=== PATIENT | female | born 1945 | race African-American/Black ===

== ENCOUNTER 2021-12-25 07:41 | Inpatient (IN) | payer MEDICARE, OTHER ==
[~2021-12-25] VITALS: Ht 165.1 cm; Wt 63.5 kg
[2021-12-25] MEDS ORDERED: SODIUM CHLORIDE 0.9% 1,000 ML IV ONE (09:15)
[2021-12-25] MEDS ORDERED: MECLIZINE 25MG TABLET PO ONE (09:15)
[2021-12-25 09:44] LABS: BASOPHILS % 0.6 % (0.0-2.0); EOSINOPHILS % 0.6 % (0.0-5.0); HEMATOCRIT. 37.9 % (36.0-48.0); HEMOGLOBIN. 12.3 g/dL (12.0-16.0); LYMPHOCYTES % 17.7 % (20.0-50.0); MEAN CORPUSCULAR HEMOGLOBIN 28.4 pg (28.0-32.0); MEAN CORPUSCULAR VOLUME 87.6 fL (81.0-99.0); MEAN PLATELET VOLUME 11.4 fl (7.4-10.4); MONOCYTES % 5.6 % (2.0-8.0); NEUTROPHILS % 75.5 % (40.0-76.0); PLATELET 223 x1000/uL (130-400); RED BLOOD CELL COUNT 4.33 mill/uL (4.2-5.4); RED CELL DISTRIBUTION WIDTH 13.2 % (11.6-14.6)
[2021-12-25 09:48] LABS: CHLORIDE 106 mEq/L (98-107)
[2021-12-25 10:38] LABS: CLARITY URINE CLEAR (CLEAR); COLOR URINE YELLOW (YELLOW); KETONES URINE NEGATIVE (NEGATIVE); LEUKOCYTE ESTERASE URINE 1+ (NEGATIVE); NITRITE URINE NEGATIVE (NEGATIVE); OCCULT BLOOD URINE NEGATIVE (NEGATIVE); PH URINE 6.5 (4.5-8.0); PROTEIN URINE NEGATIVE (NEGATIVE); SPECIFIC GRAVITY URINE 1.019 (1.005-1.030); UROBILINOGEN URINE 0.2 E.U./dL (0.2-1.0)
[2021-12-25] MEDS ORDERED: CEPH500T MT ×2 (12:54)
[2021-12-25] MEDS ORDERED: NITROFURANTOIN 100MG M/M CAPSULE PO ONE (13:45)
[2021-12-25] MEDS ORDERED: NITR-87 MT (13:47)
[2021-12-25] MEDS ORDERED: HYDRALAZINE 20MG/ML VIAL IV ONE (15:00)
[2021-12-25 19:00] VITALS: BP 177/72
[2021-12-25 20:00] VITALS: BP 135/61
[2021-12-25 23:42] VITALS: BP 135/61
[2021-12-26] VITALS (7 sets, daily range): BP systolic 145–164; BP diastolic 66–83
[2021-12-26] MEDS ORDERED: CLONIDINE 0.1MG TABLET PO PRN (03:00)
[2021-12-26] MEDS: MECLIZINE 25MG TABLET PO SCH ×2 (08:40→17:42)
[2021-12-26] MEDS: ENOXAPARIN 40MG/0.4ML SYR SUBCUT SCH (21:32)
[2021-12-26] MEDS ORDERED: CEFTRIAXONE 1 G PREMIX 50 ML IV SCH (22:00)
[2021-12-27] VITALS: BP 168/72
[2021-12-27] MEDS: CEFTRIAXONE 1,000 MG in DEXTROSE 5% WATER 50 ML IV SCH (02:05)
[2021-12-27 04:00] VITALS: BP 136/67
[2021-12-27 08:00] VITALS: BP 144/71
[2021-12-27] MEDS: MECLIZINE 25MG TABLET PO SCH ×2 (09:42→17:26)
[2021-12-27 12:00] VITALS: BP 151/75
[2021-12-27] MEDS: ACETAMINOPHEN 325MG TABLET PO PRN (12:28)
[2021-12-27 16:30] VITALS: BP 148/70
[2021-12-27 20:00] VITALS: BP 127/78
[2021-12-27] MEDS: ENOXAPARIN 40MG/0.4ML SYR SUBCUT SCH (21:20)
[2021-12-28] VITALS: BP 131/63
[2021-12-28] MEDS: CEFTRIAXONE 1,000 MG in DEXTROSE 5% WATER 50 ML IV SCH (01:58)
[2021-12-28 04:00] VITALS: BP 153/65
[2021-12-28 08:08] VITALS: BP 149/70
[2021-12-28] MEDS: MECLIZINE 25MG TABLET PO SCH (08:34)
[2021-12-28 12:11] VITALS: BP 137/77
[2021-12-28] MEDS: ACETAMINOPHEN 325MG TABLET PO PRN (13:02)
[2021-12-28 16:00] VITALS: BP 140/75
[2021-12-28] MEDS ORDERED: MECL-217 MT (16:15)
[2021-12-28] MEDS ORDERED: AMOX1TAB16 MT (16:15)
[2021-12-28 16:47] VITALS: BP 140/75
== END 2021-12-28 18:20 | disposition home or self-care (01) | DRG 149 ==
LOC: ER 08:05 → ENRESERV 14:32 → CANRESERV 14:32 → 6WST 15:13 → EDBEDREQTM 15:23 → EDBEDREQ 15:23 → EDBEDREQSVC 15:29 → ENRESERV 17:19 → CANRESERV 17:19 → ENRESERV 17:22
PROVIDERS: ADMIT Internal Medicine; ATTEND Internal Medicine
DX: H81.10 Benign paroxysmal vertigo, unspecified ear (principal); N39.0 Urinary tract infection, site not specified; I10 Essential (primary) hypertension; Z88.0 Allergy status to penicillin; Z91.040 Latex allergy status; Z88.8 Allergy status to other drugs, medicaments and biological substances; Z86.73 Personal history of transient ischemic attack (TIA), and cerebral infarction without residual deficits
CPT/HCPCS: 36415; 71045; 80053; 81003; 84484; 85025; 93005; 97162; 99285; C1893; J0360; J0696; J1650; J7030; J7060; J8597